=== PATIENT | male | born 1990 | race Two or more races ===

== ENCOUNTER → 2017-12-01 | Outpatient (CLI) | payer OTHER | END | disposition home or self-care (01) | LOC: STAR 14:13 | PROVIDERS: ATTEND Podiatrist Foot & Ankle Surgery | DX: Z01.810 Encounter for preprocedural cardiovascular examination (principal); R94.31 Abnormal electrocardiogram [ECG] [EKG] | CPT/HCPCS: 93005 ==

== ENCOUNTER 2019-01-31 17:32 | Emergency (ER) | payer OTHER ==
[~2019-01-31] VITALS: Ht 185.4 cm; Wt 143.0 kg
[2019-01-31 17:56] VITALS: BP 145/92
--- NOTE | 2019-01-31 18:15 | NUR ---
Pt reports testicular pain 1.5weeks, worsening pain today. Pt ambulated to restroom with steady gait for ua, denies painful urination.
[2019-01-31 18:21] LABS: BASOPHILS # (AUTO) 0.03 x10^3/uL (0-0.1); BASOPHILS % (AUTO) 0 % (0-1); EOSINOPHILS # (AUTO) 0.22 x10^3/uL (0-0.4); EOSINOPHILS % (AUTO) 2 % (1-7); LYMPHOCYTES # (AUTO) 3.39 x10^3/uL (1-3.4); LYMPHOCYTES % (AUTO) 37 % (22-44); MD NO; MEAN CORPUSCULAR HEMOGLOBIN 27.5 pg (27.5-34.5); MEAN CORPUSCULAR HGB CONC 32.3 g/dL (33.2-36.2); MEAN CORPUSCULAR VOLUME 85.2 fL (81-97); MONOCYTES # (AUTO) 0.51 x10^3/uL (0.2-0.8); MONOCYTES % (AUTO) 6 % (2-9); NEUTROPHILS # (AUTO) 5.07 x10^3/uL (1.8-6.8); NEUTROPHILS % (AUTO) 55 % (42-75); PLATELET COUNT 321 x10^3/uL (130-400); RED BLOOD COUNT 5.52 x10^6/uL (4.38-5.82)
[2019-01-31] MEDS ORDERED: IBUPROFEN 800 MG TABLET PO ONE (18:30)
[2019-01-31 18:31] LABS: ALBUMIN 4.6 g/dL (3.4-5.0); ANION GAP 5 mmol/L (5-15); CALCIUM 9.1 mg/dL (8.5-10.1); CHLORIDE 105 mmol/L (98-107)
[2019-01-31] MEDS ORDERED: IBUPROFEN 200 MG TABLET ONE (18:32)
[2019-01-31 18:36] LABS: MICROSCOPIC AUTO
--- NOTE | 2019-01-31 18:38 | NUR ---
Pt refusing motrin at this time, awaiting US
[2019-01-31 18:40] LABS: CULTURE INDICATED? YES
[2019-01-31] MEDS ORDERED: IBUPROFEN 800 MG TABLET ONE (20:08)
== END 2019-01-31 20:38 | disposition home or self-care (01) ==
LOC: ED 18:31
DX: N50.811 Right testicular pain (principal); N43.3 Hydrocele, unspecified
CPT/HCPCS: 36415; 76870; 80048; 81001; 82040; 85025; 87086; 99284